=== PATIENT | male | born 1980 | race African-American/Black ===

== ENCOUNTER 2017-05-08 14:55 | Emergency (ER) | payer SELFPAY ==
[~2017-05-08] VITALS: Ht 182.9 cm; Wt 100.0 kg
[2017-05-08 15:03] VITALS: BP 146/79
== END 2017-05-08 20:42 | disposition left against medical advice (07) ==
LOC: ER 14:55
DX: R07.89 Other chest pain (principal); V43.62XA Car passenger injured in collision with other type car in traffic accident, initial encounter; Y93.89 Activity, other specified; Y92.488 Other paved roadways as the place of occurrence of the external cause
CPT/HCPCS: 93005; 99283

== ENCOUNTER 2024-02-10 12:44 | Emergency (ER) | payer SELFPAY ==
[~2024-02-10] VITALS: Ht 198.1 cm; Wt 102.0 kg
[2024-02-10 12:57] VITALS: TEMP 97.9; O2SAT 99
[2024-02-10] MEDS ORDERED: HYDR453.4 TP (15:34)
[2024-02-10] MEDS ORDERED: NAPR-1176 MT (15:36)
[2024-02-10 15:59] VITALS: BP 158/102; PULSE 98; RESP 16
[2024-02-10] MEDS: KETOROLAC 15MG/ML VIAL IM ONE (15:59)
== END 2024-02-10 16:01 | disposition home or self-care (01) ==
LOC: ER 12:44
DX: K64.4 Residual hemorrhoidal skin tags (principal); Z79.1 Long term (current) use of non-steroidal anti-inflammatories (NSAID)
CPT/HCPCS: 96372; 99283; J1885; Z7610